=== PATIENT | female | born 1955 | race Caucasian/White ===

== ENCOUNTER → 2016-08-16 | Outpatient (CLI) | payer BC ==
[2016-08-16 11:59] LABS: ALT 33 U/L (9-52); AST 24 U/L (14-36); Alkaline Phosphatase 65 U/L (38-126); Anion Gap 11 mmol/L; Blood Urea Nitrogen 17 mg/dL (7-17); Carbon Dioxide 26 mmol/L (22-30); Chloride 105 mmol/L (98-107); Cholesterol 188 mg/dL (<200); Glucose 96 mg/dL (74-99); HDL Cholesterol 53 mg/dL (40-60); Non-African American GFR(MDRD) >60 (>60 ml/min/1.73 sqM); Potassium 3.9 mmol/L (3.5-5.1); Sodium 142 mmol/L (137-145); Total Bilirubin 0.7 mg/dL (0.2-1.3); Total Protein 7.1 g/dL (6.3-8.2); Triglycerides 185 mg/dL (<150)
[2016-08-16 12:38] LABS: Vitamin B12 486 pg/mL (239-931)
== END | disposition home or self-care (01) ==
LOC: LABWHC1 08:43
PROVIDERS: ATTEND Internal Medicine Endocrinology, Diabetes & Metabolism
DX: E03.9 Hypothyroidism, unspecified (principal); E11.65 Type 2 diabetes mellitus with hyperglycemia
CPT/HCPCS: 36415; 80053; 80061; 82043; 82607; 84443

== ENCOUNTER → 2016-09-13 | Outpatient (CLI) | payer BC ==
--- NOTE | 2016-09-14 13:20 | BD ---
EXAMINATION TYPE: MG DEXA axial skeleton. DATE OF EXAM: 09/13/2016 4:02 PM COMPARISON: NONE CLINICAL HISTORY: Z13.820 SPECIAL SCREENING FOR OSTEOPOROSIS Height: 62 Weight: 170 FRAX RISK QUESTIONS: Alcohol (3 or more units per day): NO Family History (Parent hip fracture): YES Glucocorticoids (More than 3mos): NO (Ex: prednisone, prednisolone, methylprednisolone, dexamethasone, and hydrocortisone). History of Fracture in Adulthood: NO Secondary Osteoporosis: NO 1. Type 1 Diabetes: NO 2. Hyperthyroidism: NO 3. Menopause before 45: NO 4. Malnutrition: NO 5. Chronic liver disease: NO Rheumatoid Arthritis: NO Current Tobacco Use: NO RISK FACTORS HISTORY OF: Family History of Osteoporosis: YES, HER MOTHER WITH BROKEN HIP Smoke tobacco: NO Drink Alcohol: RARELY Active: YES, EXERCISES DAILY Diet low in dairy products/other sources of calcium: NO Postmenopausal woman: YES AT 49 YRS OLD Adrenal Insufficiency: NO MEDICATIONS: Thyroid Medications: YES Which medication: GENERIC SYNTHROID How Lon YRS Additional Medications: BP MEDS, ORAL DIABETIC MEDS, CALCIUM AND VIT D, STATIN FOR CHOLESTEROL, HEART BURN MEDS Additional History: HYPERTENSION, DIABETIC, ACID REFLUX EXAM MEASUREMENTS: Bone mineral densitometry was performed using the [employer] System. Bone mineral density as measured about the Lumbar spine is: ----- L1-L4(G/cm2): 1.096 T Score Values are as follows: ----- L1 -0.4 ----- L2: -0.9 ----- L3: -0.5 ----- L4: -1.0 ----- L1-L4: -0.7 Bone mineral density THIS IS HER FIRST BONE DENSITY TEST AT [facility].... Bone mineral density about the R hip (g/cm2): 1.026 Bone mineral density about the L hip (g/cm2): 0.980 T Score values are as follows: -----R Neck: -0.7 -----L Neck: -0.9 -----R Total: 0.1 -----L Total: -0.2 Bone mineral density FIRST BONE DENSITY AT [facility].... FRAX %'S: 14.5% CHANCE OF A MAJOR OSTEOPOROTIC FX AND 0.4% CHANCE OF A HIP FX..... PROBABILITY OF FX IN 10 YRS TIME IMPRESSION: Normal (Values between +1 and -1 indicate normal bone mass). Consider repeating this study in 5 year s or sooner if there is some new clinical indication. FOR BOTH HIPS AND LUMBAR SPINE NOTE: T-SCORE=SD OF THE YOUNG ADULT MEAN.
== END ==
LOC: RADBDWWP 15:23
PROVIDERS: ATTEND Family Medicine
DX: Z13.820 Encounter for screening for osteoporosis (principal)
CPT/HCPCS: 77080

== ENCOUNTER → 2017-03-06 | Outpatient (CLI) | payer BC ==
--- NOTE | 2017-03-07 11:52 | MM ---
Reason for exam: screening (asymptomatic). Last mammogram was performed 1 year ago. History: Patient is postmenopausal. Benign excisional biopsy of the left breast, 1994. Physical Findings: A clinical breast exam by your physician is recommended on an annual basis and results should be correlated with mammographic findings. MG Screening Mammo w CAD Bilateral CC and MLO view(s) were taken. Prior study comparison: March 04, 2016, bilateral MG screening mammo w CAD. March 01, 2015, bilateral MG screening mammo w CAD. No significant changes when compared with prior studies. ASSESSMENT: Benign, BI-RAD 2 RECOMMENDATION: Routine screening mammogram of both breasts in 1 year.
== END | disposition home or self-care (01) ==
LOC: RADMAMWWP 09:09
PROVIDERS: ATTEND Family Medicine
DX: Z12.31 Encounter for screening mammogram for malignant neoplasm of breast (principal)

== ENCOUNTER → 2017-06-24 | Outpatient (CLI) | payer BC ==
[2017-06-24 07:34] LABS: ALT 29 U/L (9-52); AST 18 U/L (14-36); Cholesterol 167 mg/dL (<200); Creatine Kinase 50 U/L (30-135); HDL Cholesterol 49 mg/dL (40-60); LDL Cholesterol,Calculated 90 mg/dL (0-99); Triglycerides 139 mg/dL (<150)
== END | disposition home or self-care (01) ==
LOC: LABWHC1 06:55
PROVIDERS: ATTEND Internal Medicine Interventional Cardiology
DX: E11.9 Type 2 diabetes mellitus without complications (principal); E78.00 Pure hypercholesterolemia, unspecified; Z11.59 Encounter for screening for other viral diseases
CPT/HCPCS: 36415; 80061; 82550; 84450; 84460; 86803

== ENCOUNTER → 2017-11-11 | Outpatient (CLI) | payer BC ==
[2017-11-11 10:34] LABS: ALT 37 U/L (9-52); AST 21 U/L (14-36); Alkaline Phosphatase 74 U/L (38-126); Anion Gap 6 mmol/L; Blood Urea Nitrogen 16 mg/dL (7-17); Calcium 9.5 mg/dL (8.4-10.2); Carbon Dioxide 28 mmol/L (22-30); Chloride 108 mmol/L (98-107); Cholesterol 167 mg/dL (<200); Glucose 93 mg/dL (74-99); HDL Cholesterol 57 mg/dL (40-60); LDL Cholesterol,Calculated 93 mg/dL (0-99); Potassium 4.1 mmol/L (3.5-5.1); Sodium 142 mmol/L (137-145); Total Bilirubin 0.4 mg/dL (0.2-1.3); Total Protein 6.2 g/dL (6.3-8.2); Triglycerides 84 mg/dL (<150)
[2017-11-11 19:11] LABS: Hemoglobin A1C 5.5 % (4.0-6.0)
== END | disposition home or self-care (01) ==
LOC: LABWHC1 09:11
PROVIDERS: ATTEND Internal Medicine Endocrinology, Diabetes & Metabolism
DX: E11.65 Type 2 diabetes mellitus with hyperglycemia (principal); E03.8 Other specified hypothyroidism
CPT/HCPCS: 36415; 80053; 80061; 82043; 82570; 83036; 84443

== ENCOUNTER → 2017-12-30 | Outpatient (CLI) | payer BC | END | disposition home or self-care (01) | LOC: LABWHC1 13:57 | PROVIDERS: ATTEND Internal Medicine Endocrinology, Diabetes & Metabolism | DX: E03.8 Other specified hypothyroidism (principal) | CPT/HCPCS: 36415; 84443 ==

== ENCOUNTER → 2018-03-11 | Outpatient (CLI) | payer BC ==
--- NOTE | 2018-03-12 12:11 | MM ---
Reason for exam: screening (asymptomatic). Last mammogram was performed 1 year ago. History: Patient is postmenopausal. Benign excisional biopsy of the left breast, 1994. MG Screening Mammo w CAD Bilateral CC and MLO view(s) were taken. Prior study comparison: March 06, 2017, bilateral MG screening mammo w CAD. March 04, 2016, bilateral MG screening mammo w CAD. The breast tissue is heterogeneously dense. This may lower the sensitivity of mammography. Chronic nodularity in the right breast. No dignificant new finding since most recent study. ASSESSMENT: Benign, BI-RAD 2 RECOMMENDATION: Routine screening mammogram of both breasts in 1 year.
== END ==
LOC: RADMAMWWP 11:36
PROVIDERS: ATTEND Family Medicine
DX: Z12.31 Encounter for screening mammogram for malignant neoplasm of breast (principal)
CPT/HCPCS: 77067

== ENCOUNTER → 2018-05-13 | Outpatient (CLI) | payer BC ==
[2018-05-13 16:45] LABS: Albumin 4.3 g/dL (3.80-4.90); Albumin/Globulin Ratio 2.53 (1.20-2.10); Anion Gap 6.2 mmol/L (4.00-12.00); Calcium 9.4 mg/dL (8.7-10.3); Carbon Dioxide 28.8 mmol/L (21.6-31.8); Globulin 1.7 g/dL (1.6-3.3); LDL Cholesterol,Calculated 109.8 mg/dL (0.0-131.0); Potassium 4.5 mmol/L (3.5-5.5); Total Bilirubin 0.5 mg/dL (0.2-1.2); VLDL Calculation 12.2 mg/dL (5.00-40.00)
[2018-05-13 20:04] LABS: Hemoglobin A1C 5.5 % (4.0-6.0)
== END | disposition home or self-care (01) ==
LOC: LABWHC1 09:14
PROVIDERS: ATTEND Internal Medicine Endocrinology, Diabetes & Metabolism
DX: E11.65 Type 2 diabetes mellitus with hyperglycemia (principal); E03.8 Other specified hypothyroidism
CPT/HCPCS: 36415; 80053; 80061; 82043; 82570; 83036; 84443

== ENCOUNTER → 2018-11-09 | Outpatient (CLI) | payer MEDICARE ==
[2018-11-09 16:09] LABS: African American GFR (CKD) 90.3 (60.0-200.0); Albumin 4.3 g/dL (3.80-4.90); Albumin/Globulin Ratio 2.87 (1.60-3.17); Anion Gap 5.7 mmol/L (4.00-12.00); BUN/Creat Ratio 18.75 Ratio (12.00-20.00); Calcium 9.4 mg/dL (8.7-10.3); Carbon Dioxide 27.3 mmol/L (21.6-31.8); Globulin 1.5 g/dL (1.6-3.3); LDL Cholesterol,Calculated 107.2 mg/dL (0.0-131.0); Potassium 4.3 mmol/L (3.5-5.5); Total Bilirubin 0.6 mg/dL (0.2-1.2); Total Protein 5.8 g/dL (6.2-8.2); VLDL Calculation 13.8 mg/dL (5.00-40.00)
[2018-11-09 18:38] LABS: Hemoglobin A1C 5.7 % (4.0-6.0)
== END | disposition home or self-care (01) ==
LOC: LABWHC1 07:56
PROVIDERS: ATTEND Internal Medicine Endocrinology, Diabetes & Metabolism
DX: E11.9 Type 2 diabetes mellitus without complications (principal)
CPT/HCPCS: 36415; 80053; 80061; 82043; 82570; 83036; 84443

== ENCOUNTER → 2019-03-12 | Outpatient (CLI) | payer MEDICARE ==
--- NOTE | 2019-03-15 09:07 | MM ---
Reason for exam: screening (asymptomatic). Last mammogram was performed 1 year ago. History: Patient is postmenopausal. Benign excisional biopsy of the left breast, 1994. Physical Findings: A clinical breast exam by your physician is recommended on an annual basis and results should be correlated with mammographic findings. MG 3D Screening Mammo W/Cad Bilateral CC and MLO view(s) were taken. XCCL view(s) were taken of the left breast. Prior study comparison: March 11, 2018, bilateral MG screening mammo w CAD. March 06, 2017, bilateral MG screening mammo w CAD. There are scattered fibroglandular densities. Benign appearing bilateral calcifications. No suspicious abnormality. Post surgical change on the left. No significant changes when compared with prior studies. ASSESSMENT: Benign, BI-RAD 2 RECOMMENDATION: Routine screening mammogram of both breasts in 1 year.
== END ==
LOC: RADMAMWWP 11:03
PROVIDERS: ATTEND Family Medicine
DX: Z12.31 Encounter for screening mammogram for malignant neoplasm of breast (principal)
CPT/HCPCS: 77063; 77067

== ENCOUNTER → 2019-05-13 | Outpatient (CLI) | payer MEDICARE ==
[2019-05-13 17:29] LABS: African American GFR (CKD) 89.7 (60.0-200.0); Albumin 4.5 g/dL (3.80-4.90); Albumin/Globulin Ratio 2.81 (1.60-3.17); Anion Gap 8.9 mmol/L (4.00-12.00); BUN/Creat Ratio 22.5 Ratio (12.00-20.00); Calcium 9.5 mg/dL (8.7-10.3); Carbon Dioxide 26.1 mmol/L (21.6-31.8); Chol/HDL Ratio 3.11; Globulin 1.6 g/dL (1.6-3.3); LDL Cholesterol,Calculated 113.6 mg/dL (0.0-131.0); Non-African American GFR(CKD) 77.4 (60.0-200.0); Potassium 4.3 mmol/L (3.5-5.5); Total Bilirubin 0.7 mg/dL (0.2-1.2); Total Protein 6.1 g/dL (6.2-8.2); VLDL Calculation 17.4 mg/dL (5.00-40.00)
[2019-05-13 17:56] LABS: Urine Creatinine 93.3 mg/dL
[2019-05-13 18:37] LABS: Hemoglobin A1C 5.5 % (4.0-6.0)
== END ==
LOC: LABWHC1 08:39
PROVIDERS: ATTEND Internal Medicine Endocrinology, Diabetes & Metabolism
DX: E11.9 Type 2 diabetes mellitus without complications (principal)
CPT/HCPCS: 36415; 80053; 80061; 82043; 82570; 83036; 84443

== ENCOUNTER → 2019-11-11 | Outpatient (CLI) | payer MEDICARE ==
[2019-11-11 17:26] LABS: African American GFR (CKD) 89.7 (60.0-200.0); Albumin 4.3 g/dL (3.80-4.90); Albumin/Globulin Ratio 2.26 (1.60-3.17); Anion Gap 6.9 mmol/L (4.00-12.00); BUN/Creat Ratio 21.25 Ratio (12.00-20.00); Calcium 9.2 mg/dL (8.7-10.3); Carbon Dioxide 25.1 mmol/L (21.6-31.8); Chol/HDL Ratio 3.32; Globulin 1.9 g/dL (1.6-3.3); LDL Cholesterol,Calculated 111.2 mg/dL (0.0-131.0); Non-African American GFR(CKD) 77.4 (60.0-200.0); Potassium 4.3 mmol/L (3.5-5.5); Total Bilirubin 0.7 mg/dL (0.2-1.2); Total Protein 6.2 g/dL (6.2-8.2); VLDL Calculation 20.8 mg/dL (5.00-40.00)
[2019-11-11 17:36] LABS: Hemoglobin A1C 5.6 % (4.0-6.0)
[2019-11-11 17:44] LABS: Urine Creatinine 109.7 mg/dL
== END | disposition home or self-care (01) ==
LOC: LABWHC1 09:14
PROVIDERS: ATTEND Internal Medicine Endocrinology, Diabetes & Metabolism
DX: E11.9 Type 2 diabetes mellitus without complications (principal)
CPT/HCPCS: 36415; 80053; 80061; 82043; 82570; 83036; 84443

== ENCOUNTER → 2020-05-05 | Outpatient (CLI) | payer MEDICARE ==
[2020-05-05 16:33] LABS: African American GFR (CKD) 104.6 (60.0-200.0); Albumin 4.4 g/dL (3.80-4.90); Albumin/Globulin Ratio 2.44 (1.60-3.17); Anion Gap 5.9 mmol/L (4.00-12.00); Calcium 9.3 mg/dL (8.7-10.3); Carbon Dioxide 26.1 mmol/L (21.6-31.8); Chol/HDL Ratio 3.02; Globulin 1.8 g/dL (1.6-3.3); LDL Cholesterol,Calculated 103.6 mg/dL (0.0-131.0); Non-African American GFR(CKD) 90.3 (60.0-200.0); Potassium 4.1 mmol/L (3.5-5.5); Total Bilirubin 0.7 mg/dL (0.3-1.2); Total Protein 6.2 g/dL (6.2-8.2); VLDL Calculation 19.4 mg/dL (5.00-40.00)
[2020-05-05 19:39] LABS: Urine Creatinine 54.5 mg/dL
== END | disposition home or self-care (01) ==
LOC: LABWHC1 08:06
PROVIDERS: ATTEND Internal Medicine Endocrinology, Diabetes & Metabolism
DX: E03.8 Other specified hypothyroidism (principal); E11.9 Type 2 diabetes mellitus without complications
CPT/HCPCS: 36415; 80053; 80061; 82043; 82570; 83036; 84443

== ENCOUNTER → 2020-05-08 | Outpatient (CLI) | payer MEDICARE ==
--- NOTE | 2020-05-10 09:46 | MM ---
Reason for exam: screening (asymptomatic). Last mammogram was performed 1 year and 2 months ago. History: Patient is postmenopausal. Benign excisional biopsy of the left breast, 1994. Took hormonal contraceptives for 10 years. Physical Findings: A clinical breast exam by your physician is recommended on an annual basis and results should be correlated with mammographic findings. MG Screening Mammo w CAD Bilateral CC and MLO view(s) were taken. Prior study comparison: March 12, 2019, bilateral MG 3d screening mammo w/cad. March 11, 2018, bilateral MG screening mammo w CAD. There are scattered fibroglandular densities. There is chronic nodularity in the right breast. Benign oil cyst calcifications bilaterally. No significant changes when compared with prior studies. ASSESSMENT: Benign, BI-RAD 2 RECOMMENDATION: Routine screening mammogram of both breasts in 1 year.
== END | disposition home or self-care (01) ==
LOC: RADMAMWWP 16:02
PROVIDERS: ATTEND Family Medicine
DX: Z12.31 Encounter for screening mammogram for malignant neoplasm of breast (principal)
CPT/HCPCS: 77067

== ENCOUNTER → 2020-11-02 | Outpatient (CLI) | payer MEDICARE ==
[2020-11-02 13:58] LABS: Albumin 4.4 g/dL (3.80-4.90); Albumin/Globulin Ratio 2.2 (1.60-3.17); Anion Gap 6.7 mmol/L (4.00-12.00); Carbon Dioxide 25.3 mmol/L (21.6-31.8); Chol/HDL Ratio 3.23; LDL Cholesterol,Calculated 103.4 mg/dL (0.0-131.0); Non-African American GFR(CKD) 76.8 (60.0-200.0); Potassium 3.9 mmol/L (3.5-5.5); Total Bilirubin 0.7 mg/dL (0.2-1.2); Total Protein 6.4 g/dL (6.2-8.2); VLDL Calculation 21.6 mg/dL (5.00-40.00)
[2020-11-02 15:04] LABS: Hemoglobin A1C 5.6 % (4.0-6.0)
== END | disposition home or self-care (01) ==
LOC: LABWHC1 07:09
PROVIDERS: ATTEND Internal Medicine Endocrinology, Diabetes & Metabolism
DX: E11.9 Type 2 diabetes mellitus without complications (principal)
CPT/HCPCS: 36415; 80053; 80061; 82043; 82570; 83036; 84443

== ENCOUNTER → 2021-05-02 | Outpatient (CLI) | payer MEDICARE ==
--- NOTE | 2021-05-02 19:05 | BD ---
EXAMINATION TYPE: Axial Bone Density DATE OF EXAM: 05/02/2021 COMPARISON: 2017 CLINICAL HISTORY: Postmenopausal screening Height: 5 FT 2 3/4 IN Weight: 149 FRAX RISK QUESTIONS: Alcohol (3 or more units per day): NO Family History (Parent hip fracture): YES Glucocorticoids (More than 3mos): NO (Ex: prednisone, prednisolone, methylprednisolone, dexamethasone, and hydrocortisone). History of Fracture in Adulthood: NO Secondary Osteoporosis: 1. Type 1 Diabetes: NO 2. Hyperthyroidism: NO 3. Menopause before 45: NO 4. Malnutrition: NO 5. Chronic liver disease: NO Rheumatoid Arthritis: NO Current Tobacco Use: NO RISK FACTORS HISTORY OF: Surgery to Spine/Hip(right/left)/Wrist (right/left): NO Family History of Osteoporosis: YES Active: YES Diet low in dairy products/other sources of calcium: NO Postmenopausal woman: YES Take estrogen and/or progesterone medications: NO Lost more than 2 inches in height since high school: NO Frequent falls: NO Poor Health: GOOD Hyperparathyroidism: NO Adrenal Insufficiency: NO MEDICATIONS: Thyroid Medications: YES Which medication: LEVOTHYROXINE How Long: APPROX 20 YEARS Additional Medications: LEVOTHYROXINE, SIMVASTATIN, LISINOPRIL, METFORMIN Additional History: EXAM MEASUREMENTS: Bone mineral densitometry was performed using the [employer] System. Bone mineral density as measured about the Lumbar spine is: ----- L1-L4(G/cm2): 1.018 T Score Values are as follows: ----- L2: -1.5 ----- L3: -0.7 ----- L4: -1.2 ----- L1-L4: -1.3 Bone mineral density has: DECREASED -3.4 % since study of: 2017 Bone mineral density about the R hip (g/cm2): 0.862 Bone mineral density about the L hip (g/cm2): 0.807 T Score values are as follows: -----R Neck: -1.3 -----L Neck: -1.7 -----R Total: -0.6 -----L Total: -1.0 Bone mineral density has: DECREASED -9.5 % since study of: 2017 IMPRESSION: Osteopenia (T Score between -2.5 and -1). There is slightly increased risk of fracture and the patient may be considered for treatment. Re-Screen 2-5 years. NOTE: T-SCORE=SD OF THE YOUNG ADULT MEAN.
== END | disposition home or self-care (01) ==
LOC: RADBDWWP 07:00
PROVIDERS: ATTEND Family Medicine
DX: M85.89 Other specified disorders of bone density and structure, multiple sites (principal); Z78.0 Asymptomatic menopausal state
CPT/HCPCS: 77080

== ENCOUNTER → 2021-06-07 | Outpatient (CLI) | payer MEDICARE ==
--- NOTE | 2021-06-08 14:02 | MM ---
Reason for exam: screening (asymptomatic). Last mammogram was performed 1 year and 1 month ago. History: Patient is postmenopausal. Benign excisional biopsy of the left breast, 1994. Took hormonal contraceptives for 10 years. Physical Findings: A clinical breast exam by your physician is recommended on an annual basis and results should be correlated with mammographic findings. MG Screening Mammo w CAD Bilateral CC and MLO view(s) were taken. Prior study comparison: May 08, 2020, bilateral MG screening mammo w CAD. March 12, 2019, bilateral MG 3d screening mammo w/cad. The breast tissue is heterogeneously dense. This may lower the sensitivity of mammography. Stable benign calcifications. There is no discrete abnormality. No significant changes when compared with prior studies. ASSESSMENT: Benign, BI-RAD 2 RECOMMENDATION: Routine screening mammogram of both breasts in 1 year.
== END | disposition home or self-care (01) ==
LOC: RADMAMWWP 10:59
PROVIDERS: ATTEND Family Medicine
DX: Z12.31 Encounter for screening mammogram for malignant neoplasm of breast (principal); Z78.0 Asymptomatic menopausal state
CPT/HCPCS: 77067

== ENCOUNTER → 2021-11-01 | Outpatient (CLI) | payer MEDICARE ==
[2021-11-01 11:40] LABS: ALT 53 U/L (8-44); AST 27 U/L (13-35); African American GFR (CKD) 103.7 (60.0-200.0); Albumin 3.5 g/dL (3.8-4.9); Albumin/Globulin Ratio 1.34 (1.60-3.17); Alkaline Phosphatase 120 U/L (41-126); BUN/Creat Ratio 16.98 Ratio (12.00-20.00); Blood Urea Nitrogen 11.9 mg/dL (9.0-27.0); Calcium 8.9 mg/dL (8.7-10.3); Carbon Dioxide 22.1 mmol/L (20.0-27.5); Chloride 100 mmol/L (96-109); Chol/HDL Ratio 3.54 Ratio; Globulin 2.6 g/dL (1.6-3.3); Glucose 119 mg/dL (70-110); LDL Cholesterol,Calculated 80.8 mg/dL (0.0-131.0); Non-African American GFR(CKD) 89.5 (60.0-200.0); Potassium 4.6 mmol/L (3.5-5.5); Sodium 137 mmol/L (135-145); Total Protein 6.1 g/dL (6.2-8.2); VLDL Calculation 12.48 mg/dL (5.00-40.00)
== END | disposition home or self-care (01) ==
LOC: LABWHC1 07:04
PROVIDERS: ATTEND Internal Medicine Endocrinology, Diabetes & Metabolism
DX: E11.9 Type 2 diabetes mellitus without complications (principal)
CPT/HCPCS: 36415; 80053; 80061; 82043; 82570; 83036; 84443

== ENCOUNTER → 2021-11-19 | Outpatient (CLI) | payer MEDICARE ==
[2021-11-19 10:51] LABS: ALT 9 U/L (8-44); AST 16 U/L (13-35); African American GFR (CKD) 109.3 (60.0-200.0); Albumin 3.4 g/dL (3.8-4.9); Albumin/Globulin Ratio 1.03 (1.60-3.17); Alkaline Phosphatase 72 U/L (41-126); BUN/Creat Ratio 13.17 Ratio (12.00-20.00); Blood Urea Nitrogen 7.9 mg/dL (9.0-27.0); Calcium 9.2 mg/dL (8.7-10.3); Carbon Dioxide 24.7 mmol/L (20.0-27.5); Chloride 103 mmol/L (96-109); Globulin 3.3 g/dL (1.6-3.3); Glucose 104 mg/dL (70-110); Non-African American GFR(CKD) 94.3 (60.0-200.0); Sodium 139 mmol/L (135-145); Total Bilirubin <0.15 mg/dL (0.30-1.20); Total Protein 6.7 g/dL (6.2-8.2)
== END | disposition home or self-care (01) ==
LOC: LABWHC1 07:29
PROVIDERS: ATTEND Internal Medicine Endocrinology, Diabetes & Metabolism
DX: E11.9 Type 2 diabetes mellitus without complications (principal)
CPT/HCPCS: 36415; 80053

== ENCOUNTER 2022-05-08 14:22 | Observation (INO) | payer MEDICARE ==
--- NOTE | 2022-05-08 14:57 | ED ---
GI Bleed HPI - General Chief complaint: GI Bleed Stated complaint: internal bleeding/covid + Time Seen by Provider: 05/08/22 14:51 Source: patient Mode of arrival: ambulatory - History of Present Illness Initial comments: This is a well-appearing 66-year-old female presents ambulatory with complaints of being sent by primary care doctor for bright red bowel movements for the past few days. Patient states she's having felt 100 day. She did test positive for coronavirus last Friday and at that time developed diarrhea since when her symptoms of rectal bleeding started. She does have a history of aneurysm, hypertension, diabetes, hypercholesterolemia. No alcohol or drug use. -: days(s) (3) - Related Data Home Medications Medication Instructions Recorded Confirmed Aspirin EC [Ecotrin Low Dose] 81 mg PO Q3D 05/08/22 05/08/22 Levothyroxine Sodium [Synthroid] 100 mcg PO DAILY 05/08/22 05/08/22 Metoprolol Succinate (ER) [Toprol 25 mg PO HS 05/08/22 05/08/22 XL] Multivitamins, Thera [Multivitamin 1 tab PO HS 05/08/22 05/08/22 (formulary)] Simvastatin [Zocor] 20 mg PO Q48H 05/08/22 05/08/22 lisinopriL [Zestril] 5 mg PO HS 05/08/22 05/08/22 metFORMIN HCL ER [Glucophage XR] 500 mg PO HS 05/08/22 05/08/22 Previous Rx's Medication Instructions Recorded Pantoprazole [Protonix] 40 mg PO DAILY #14 tab 05/09/22 Allergies Allergy/AdvReac Type Severity Reaction Status Date / Time No Known Allergies Allergy Verified 05/08/22 19:54 Review of Systems ROS Statement: Those systems with pertinent positive or pertinent negative responses have been documented in the HPI. ROS Other: All systems not noted in ROS Statement are negative. Past Medical History Past Medical History: Diabetes Mellitus, Hyperlipidemia, Hypertension, Thyroid Disorder Additional Past Medical History / Comment(s): aortic aneurysm History of Any Multi-Drug Resistant Organisms: None Reported Past Surgical History: Bladder Surgery, Breast Surgery, Hysterectomy Past Psychological History: No Psychological Hx Reported Smoking Status: Never smoker Past Alcohol Use History: None Reported Past Drug Use History: None Reported Course Vital Signs 05/08/22 05/08/22 14:50 19:00 Temperature 98.0 F Pulse Rate 90 68 Respiratory 16 16 Rate Blood Pressure 134/85 96/68 O2 Sat by Pulse 96 97 Oximetry Medical Decision Making - Lab Data Result diagrams: 05/09/22 05:33 05/09/22 05:33 Lab Results 05/08/22 05/08/22 05/08/22 Range/Units 16:05 16:05 16:05 WBC 6.5 (3.8-10.6) k/uL RBC 4.44 (3.80-5.40) m/uL Hgb 13.3 (11.4-16.0) gm/dL Hct 38.9 (34.0-46.0) % MCV 87.6 (80.0-100.0) fL MCH 30.0 (25.0-35.0) pg MCHC 34.2 (31.0-37.0) g/dL RDW 13.0 (11.5-15.5) % Plt Count 252 (150-450) k/uL MPV 8.2 Neutrophils % 59 % Lymphocytes % 28 % Monocytes % 8 % Eosinophils % 2 % Basophils % 1 % Neutrophils # 3.8 (1.3-7.7) k/uL Lymphocytes # 1.8 (1.0-4.8) k/uL Monocytes # 0.5 (0-1.0) k/uL Eosinophils # 0.1 (0-0.7) k/uL Basophils # 0.0 (0-0.2) k/uL APTT 23.4 (22.0-30.0) sec Sodium 141 (137-145) mmol/L Potassium 4.5 (3.5-5.1) mmol/L Chloride 107 (98-107) mmol/L Carbon Dioxide 28 (22-30) mmol/L Anion Gap 6 mmol/L BUN 14 (7-17) mg/dL Creatinine 0.70 (0.52-1.04) mg/dL Est GFR (CKD-EPI)AfAm >90 (>60 ml/min/1.73 sqM) Est GFR (CKD-EPI)NonAf 89 (>60 ml/min/1.73 sqM) Glucose 106 H (74-99) mg/dL Calcium 9.0 (8.4-10.2) mg/dL Magnesium 2.0 (1.6-2.3) mg/dL Total Bilirubin 0.2 (0.2-1.3) mg/dL AST 20 (14-36) U/L ALT 17 (4-34) U/L Alkaline Phosphatase 63 (38-126) U/L Total Protein 6.2 L (6.3-8.2) g/dL Albumin 3.8 (3.5-5.0) g/dL Stool Occult Blood (Negative) 05/08/22 Range/Units 18:08 WBC (3.8-10.6) k/uL RBC (3.80-5.40) m/uL Hgb (11.4-16.0) gm/dL Hct (34.0-46.0) % MCV (80.0-100.0) fL MCH (25.0-35.0) pg MCHC (31.0-37.0) g/dL RDW (11.5-15.5) % Plt Count (150-450) k/uL MPV Neutrophils % % Lymphocytes % % Monocytes % % Eosinophils % % Basophils % % Neutrophils # (1.3-7.7) k/uL Lymphocytes # (1.0-4.8) k/uL Monocytes # (0-1.0) k/uL Eosinophils # (0-0.7) k/uL Basophils # (0-0.2) k/uL APTT (22.0-30.0) sec Sodium (137-145) mmol/L Potassium (3.5-5.1) mmol/L Chloride (98-107) mmol/L Carbon Dioxide (22-30) mmol/L Anion Gap mmol/L BUN (7-17) mg/dL Creatinine (0.52-1.04) mg/dL Est GFR (CKD-EPI)AfAm (>60 ml/min/1.73 sqM) Est GFR (CKD-EPI)NonAf (>60 ml/min/1.73 sqM) Glucose (74-99) mg/dL Calcium (8.4-10.2) mg/dL Magnesium (1.6-2.3) mg/dL Total Bilirubin (0.2-1.3) mg/dL AST (14-36) U/L ALT (4-34) U/L Alkaline Phosphatase (38-126) U/L Total Protein (6.3-8.2) g/dL Albumin (3.5-5.0) g/dL Stool Occult Blood Positive H (Negative) Disposition Disposition: ADMITTED IP TO THIS HOSP Condition: Stable
[2022-05-08 16:15] LABS: Basophils % (A) 1 %; Eosinophils # (A) 0.1 k/uL (0-0.7); Eosinophils % (A) 2 %; HCT 38.9 % (34.0-46.0); HGB 13.3 gm/dL (11.4-16.0); Lymphocytes # (A) 1.8 k/uL (1.0-4.8); Lymphocytes % (A) 28 %; MCHC 34.2 g/dL (31.0-37.0); MCV 87.6 fL (80.0-100.0); Mean Platelet Volume 8.2; Monocytes # (A) 0.5 k/uL (0-1.0); Monocytes % (A) 8 %; Neutrophils # (A) 3.8 k/uL (1.3-7.7); Neutrophils % (A) 59 %; Platelet Count 252 k/uL (150-450); RBC 4.44 m/uL (3.80-5.40); WBC 6.5 k/uL (3.8-10.6)
[2022-05-08 16:26] LABS: ALT 17 U/L (4-34); AST 20 U/L (14-36); African American GFR (CKD) >90 (>60 ml/min/1.73 sqM); Albumin 3.8 g/dL (3.5-5.0); Alkaline Phosphatase 63 U/L (38-126); Anion Gap 6 mmol/L; Blood Urea Nitrogen 14 mg/dL (7-17); Carbon Dioxide 28 mmol/L (22-30); Chloride 107 mmol/L (98-107); Glucose 106 mg/dL (74-99); Non-African American GFR(CKD) 89 (>60 ml/min/1.73 sqM); Potassium 4.5 mmol/L (3.5-5.1); Sodium 141 mmol/L (137-145); Total Bilirubin 0.2 mg/dL (0.2-1.3); Total Protein 6.2 g/dL (6.3-8.2)
[2022-05-08] MEDS ORDERED: PEG 3350 (236 GM/BTL) + LYTES 4,000 ML BOTTLE PO ONE (18:44)
[2022-05-08] MEDS ORDERED: ONDANSETRON 4 MG/2 ML VIAL IVP PRN (18:45)
[2022-05-08] MEDS ORDERED: NALOXONE 0.4 MG/ML 1 ML VIAL IV PRN (18:45)
[2022-05-08] MEDS ORDERED: ACETAMINOPHEN TAB 325 MG TAB PO PRN (18:45)
[2022-05-08] MEDS ORDERED: MAG HYDROX/AL HYDROX/SIMETH 30 ML CUP PO PRN (18:45)
[2022-05-08] MEDS: SODIUM CHLORIDE 0.9% 1,000 ML IV SCH (19:42)
[2022-05-08] MEDS ORDERED: lisinopriL 5 MG TAB PO SCH (21:00)
[2022-05-08] MEDS ORDERED: METOPROLOL SUCCINATE (ER) 25 MG TAB.ER.24H PO SCH (21:00)
[2022-05-08 21:12] LABS: Glucose,Whole Blood 87 mg/dL (70-110)
[2022-05-08] MEDS: FAMOTIDINE 20 MG TAB PO SCH (21:25)
[2022-05-09 00:43] LABS: HCT 40.8 % (34.0-46.0); HGB 13.4 gm/dL (11.4-16.0); MCH 28.8 pg (25.0-35.0); MCHC 32.9 g/dL (31.0-37.0); MCV 87.5 fL (80.0-100.0); Platelet Count 306 k/uL (150-450); RBC 4.67 m/uL (3.80-5.40); RDW 12.6 % (11.5-15.5); WBC 6.5 k/uL (3.8-10.6)
[2022-05-09] MEDS: SODIUM CHLORIDE 0.9% 1,000 ML IV SCH (04:26)
[2022-05-09 05:49] LABS: Basophils % (A) 0 %; Eosinophils # (A) 0.1 k/uL (0-0.7); Eosinophils % (A) 2 %; HCT 35.6 % (34.0-46.0); HGB 11.9 gm/dL (11.4-16.0); Lymphocytes # (A) 1.8 k/uL (1.0-4.8); Lymphocytes % (A) 34 %; MCH 29.2 pg (25.0-35.0); MCHC 33.5 g/dL (31.0-37.0); MCV 87.1 fL (80.0-100.0); Mean Platelet Volume 7.9; Monocytes # (A) 0.4 k/uL (0-1.0); Monocytes % (A) 8 %; Neutrophils # (A) 2.8 k/uL (1.3-7.7); Neutrophils % (A) 53 %; Platelet Count 250 k/uL (150-450); RBC 4.09 m/uL (3.80-5.40); RDW 12.7 % (11.5-15.5); WBC 5.2 k/uL (3.8-10.6)
[2022-05-09 06:02] LABS: African American GFR (CKD) >90 (>60 ml/min/1.73 sqM); Anion Gap 2 mmol/L; Blood Urea Nitrogen 12 mg/dL (7-17); Carbon Dioxide 27 mmol/L (22-30); Chloride 111 mmol/L (98-107); Glucose 93 mg/dL (74-99); Non-African American GFR(CKD) >90 (>60 ml/min/1.73 sqM); Potassium 3.8 mmol/L (3.5-5.1); Sodium 140 mmol/L (137-145)
[2022-05-09 06:14] LABS: Glucose,Whole Blood 106 mg/dL (70-110)
[2022-05-09 08:02] VITALS: RESP 18
[2022-05-09] MEDS: FAMOTIDINE 20 MG TAB PO SCH (09:32)
[2022-05-09] MEDS ORDERED: PROPOFOL 10 MG/ML 20 ML VIAL IV ONE (11:27)
[2022-05-09] MEDS ORDERED: IV FLUID CONTINUATION 1,000 ML IV ONE (11:27)
[2022-05-09] MEDS ORDERED: LIDOCAINE 2% INJ 20 MG/ML (2 ML VIAL) ONE (11:27)
--- NOTE | 2022-05-09 11:47 | P.OP ---
Date of Procedure: 05/09/22 Preoperative Diagnosis: gi Bleed Postoperative Diagnosis: Antral gastritis Moderate size hiatal hernia Mild esophagitis diverticulosis Procedure(s) Performed: EGD Colonoscopy Anesthesia: MAC Surgeon: Kevin Ordonez Condition: stable Disposition: floor Description of Procedure: Patient's placed on the endoscopy table in the lateral position. She received IV sedation. The gastroscope placed oropharynx passed in the esophagus and stomach. Scope was then placed through the pylorus. The first and second portion of the duodenum appeared normal. Scope was then brought back the antrum this. Minimally inflamed. Biopsies performed. Scope was then retroflexed and the remainder the stomach appeared normal. There was a moderate size hiatal hernia. The GE junction was at 38 cm. The distal esophagus was minimal inflamed. A biopsies performed. The proximal esophagus appeared normal. Scope was then withdrawn for patient. Next digital rectal exam was performed. This revealed no abnormalities. The flexible colonoscope was then placed patient anus and passed throughout the entire colon. The ileocecal valve was visualized. The cecum, ascending and transverse colon appeared normal. In the descending and sigmoid colon there is moderate diverticular changes. Scope was then brought back the rectum and this appeared normal. Scope withdrawn for patient. There is no evidence of any active GI bleed. Patient may have had microscopic bleeding from her gastritis.
--- NOTE | 2022-05-09 12:57 | P.GSCN ---
History of Present Illness Consult date: 05/09/22 History of present illness: CHIEF COMPLAINT: GI Bleed HISTORY OF PRESENT ILLNESS: This is a 66-year-old female who presented to hospital with complaints of bright red blood per rectum. She reports that she's been having bleeding since Friday. She was diagnosed with Covid on Friday and had been dealing with diarrhea and eventually started to have blood with blood clots in her stools. She denies any abdominal pain. She denies any nausea or vomiting. She denies any history of GI bleed. Her last colonoscopy was 2017 per patient it was negative. She's never had EGD before. She denies being on blood thinners. Hemoglobin on admission was 13 and did drop down to 11.9. PAST MEDICAL HISTORY: See below PAST SURGICAL HISTORY: See below MEDICATIONS: See below ALLERGIES: See below SOCIAL HISTORY: No illicit drug use. REVIEW OF SYSTEMS: CONSTITUTIONAL: Denies fever or chills. HEENT: Denies blurred vision, vision changes, or eye pain. Denies hemoptysis CARDIOVASCULAR: Denies chest pain or pressure. RESPIRATORY: No shortness of breath. GASTROINTESTINAL: See HPI for pertinent findings HEMATOLOGIC: Denies bleeding disorders. GENITOURINARY: Denies any blood in urine or increased urinary frequency. SKIN: Denies pruitis. Denies rash. PHYSICAL EXAM: VITAL SIGNS: Reviewed GENERAL: Well-developed in no acute distress. HEENT: No sclera icterus. Extraocular movements grossly intact. Moist buccal mucosa. Head is atraumatic, normocephalic. No nasal drainage. ABDOMEN: Soft. Nondistended. Nontender NEUROLOGIC: Alert and oriented. Cranial nerves II through XII grossly intact. LABORATORY DATA: WBC is 5.2 Hgb 11.9 platelets are 250 Sodium 140 potassium is 3.8 creatinine 0.54 Covid positive IMAGING: ASSESSMENT: 1. Acute GI bleed with bright red blood per stools 2. History of COVID-19 with diarrhea PLAN: -Patient scheduled for EGD and colonoscopy today with Dr. merrill -Patient completed GoLYTELY bowel prep yesterday -Continue IV Protonix-continue IV fluids -Continue to monitor hemoglobin -Continue monitoring for any signs or symptoms of bleeding Physician Scrap Iron Cutter note has been reviewed by physician. Signing provider agrees with the documented findings, assessment, and plan of care. Past Medical History Past Medical History: Diabetes Mellitus, Hyperlipidemia, Hypertension, Thyroid Disorder Additional Past Medical History / Comment(s): aortic aneurysm History of Any Multi-Drug Resistant Organisms: None Reported Past Surgical History: Bladder Surgery, Breast Surgery, Hysterectomy Past Psychological History: No Psychological Hx Reported Smoking Status: Never smoker Past Alcohol Use History: None Reported Past Drug Use History: None Reported Medications and Allergies Home Medications Medication Instructions Recorded Confirmed Type Aspirin EC [Ecotrin Low Dose] 81 mg PO Q3D 05/08/22 05/08/22 History Levothyroxine Sodium [Synthroid] 100 mcg PO DAILY 05/08/22 05/08/22 History Metoprolol Succinate (ER) [Toprol 25 mg PO HS 05/08/22 05/08/22 History Xl] Multivitamins, Thera [Multivitamin 1 tab PO HS 05/08/22 05/08/22 History (formulary)] Simvastatin [Zocor] 20 mg PO Q48H 05/08/22 05/08/22 History lisinopriL [Zestril] 5 mg PO HS 05/08/22 05/08/22 History metFORMIN HCL ER [Glucophage XR] 500 mg PO HS 05/08/22 05/08/22 History Allergies Allergy/AdvReac Type Severity Reaction Status Date / Time No Known Allergies Allergy Verified 05/08/22 19:54 Surgical - Exam Vital Signs Temp Pulse Resp BP Pulse Ox 98.0 F 90 16 134/85 96 05/08/22 14:50 05/08/22 14:50 05/08/22 14:50 05/08/22 14:50 05/08/22 14:50 Results - Labs 05/09/22 05:33 05/09/22 05:33 Abnormal Lab Results - Last 24 Hours (Table) 05/08/22 05/08/22 05/08/22 Range/Units 16:05 18:08 19:20 Chloride (98-107) mmol/L Glucose 106 H (74-99) mg/dL Calcium (8.4-10.2) mg/dL Total Protein 6.2 L (6.3-8.2) g/dL Stool Occult Blood Positive H (Negative) Coronavirus (PCR) Detected A (Not Detectd) 05/09/22 Range/Units 05:33 Chloride 111 H (98-107) mmol/L Glucose (74-99) mg/dL Calcium 8.0 L (8.4-10.2) mg/dL Total Protein (6.3-8.2) g/dL Stool Occult Blood (Negative) Coronavirus (PCR) (Not Detectd) Diabetes panel 05/08/22 05/09/22 Range/Units 16:05 05:33 Sodium 141 140 (137-145) mmol/L Potassium 4.5 3.8 (3.5-5.1) mmol/L Chloride 107 111 H (98-107) mmol/L Carbon Dioxide 28 27 (22-30) mmol/L BUN 14 12 (7-17) mg/dL Creatinine 0.70 0.54 (0.52-1.04) mg/dL Glucose 106 H 93 (74-99) mg/dL Calcium 9.0 8.0 L (8.4-10.2) mg/dL AST 20 (14-36) U/L ALT 17 (4-34) U/L Alkaline Phosphatase 63 (38-126) U/L Total Protein 6.2 L (6.3-8.2) g/dL Albumin 3.8 (3.5-5.0) g/dL Calcium panel 05/08/22 05/09/22 Range/Units 16:05 05:33 Calcium 9.0 8.0 L (8.4-10.2) mg/dL Albumin 3.8 (3.5-5.0) g/dL Pituitary panel 05/08/22 05/09/22 Range/Units 16:05 05:33 Sodium 141 140 (137-145) mmol/L Potassium 4.5 3.8 (3.5-5.1) mmol/L Chloride 107 111 H (98-107) mmol/L Carbon Dioxide 28 27 (22-30) mmol/L BUN 14 12 (7-17) mg/dL Creatinine 0.70 0.54 (0.52-1.04) mg/dL Glucose 106 H 93 (74-99) mg/dL Calcium 9.0 8.0 L (8.4-10.2) mg/dL Adrenal panel 05/08/22 05/09/22 Range/Units 16:05 05:33 Sodium 141 140 (137-145) mmol/L Potassium 4.5 3.8 (3.5-5.1) mmol/L Chloride 107 111 H (98-107) mmol/L Carbon Dioxide 28 27 (22-30) mmol/L BUN 14 12 (7-17) mg/dL Creatinine 0.70 0.54 (0.52-1.04) mg/dL Glucose 106 H 93 (74-99) mg/dL Calcium 9.0 8.0 L (8.4-10.2) mg/dL Total Bilirubin 0.2 (0.2-1.3) mg/dL AST 20 (14-36) U/L ALT 17 (4-34) U/L Alkaline Phosphatase 63 (38-126) U/L Total Protein 6.2 L (6.3-8.2) g/dL Albumin 3.8 (3.5-5.0) g/dL
[2022-05-09 13:04] LABS: Glucose,Whole Blood 82 mg/dL (70-110)
--- NOTE | 2022-05-09 13:30 | P.HPIM ---
History of Present Illness H&P Date: 05/09/22 This is a 66-year-old female who follows with Dr. Marina Monson, medical history significant for hypertension, hyperlipidemia, diabetes mellitus, thyroid disorder, aneurysm. Patient presents to the hospital with concern for bright red bowel movements over the last few days. Reports passing some clots as well. Patient did have a positive Covid test last Friday and then developed diarrhea and rectal bleeding. She continues to test positive for Covid this admission. Hemoglobin on admission 13.4, 11.9 today. Sodium stable at 140, potassium 3.8, chloride 111, BUN 12, creatinine 0.54. She is admitted to the hospital for a GI bleed possible lower and Gen. surgery has been consulted for further evaluation, patient has been nothing by mouth after midnight and is scheduled to undergo EGD colonoscopy today with Dr. Ordonez. Possible discharge home later today pending endoscopy. REVIEW OF SYSTEMS: CONSTITUTIONAL: No fever, no malaise, no fatigue. HEENT: No recent visual problems or hearing problems. Denied any sore throat. CARDIOVASCULAR: No chest pain, orthopnea, PND, no palpitations, no syncope. PULMONARY: No shortness of breath, no cough, no hemoptysis. GASTROINTESTINAL: No diarrhea, no nausea, no vomiting, no abdominal pain. Reports passing clots rectally and bright red stool. NEUROLOGICAL: No headaches, no weakness, no numbness. HEMATOLOGICAL: Denies any bleeding or petechiae. GENITOURINARY: Denies any burning micturition, frequency, or urgency. MUSCULOSKELETAL/RHEUMATOLOGICAL: Denies any joint pain, swelling, or any muscle pain. ENDOCRINE: Denies any polyuria or polydipsia. The rest of the 14-point review of systems is negative. PHYSICAL EXAMINATION: GENERAL: The patient is alert and oriented x3, not in any acute distress. Well developed, well nourished. HEENT: Pupils are round and equally reacting to light. EOMI. No scleral icterus. No conjunctival pallor. Normocephalic, atraumatic. No pharyngeal erythema. No thyromegaly. CARDIOVASCULAR: S1 and S2 present. No murmurs, rubs, or gallops. PULMONARY: Chest is clear to auscultation, no wheezing or crackles. ABDOMEN: Soft, nontender, nondistended, normoactive bowel sounds. No palpable organomegaly. MUSCULOSKELETAL: No joint swelling or deformity. EXTREMITIES: No cyanosis, clubbing, or pedal edema. NEUROLOGICAL: Gross neurological examination did not reveal any focal deficits. SKIN: No rashes. Assessment and plan Assessment Rectal bleeding with concern for acute lower GI bleed Acute Covid infection no evidence for pneumonia patient is currently on room air History of hypertension currently low/normal blood pressure History hyperlipidemia History of diabetes mellitus type 2, controlled History of thyroid disorder on levothyroxine History aneurysm GI prophylaxis DVT prophylaxis held at this time Full Code Plan Continue hydration with normal saline Hold home blood pressure medications General surgery consultation EGD/Colonoscopy today Possible DC home later today if cleared by general surgery The impression and plan of care has been dictated by Nora Ward Nurse Practitioner as directed. Dr. Diandra MD I have performed a history and physical examination and medical decision making of this patient, discussed the same with the dictator, and agree with the dictators assessment and plan as written, documented as a scribe. Based on total visit time, I have performed more than 50% of this visit. Past Medical History Past Medical History: Diabetes Mellitus, Hyperlipidemia, Hypertension, Thyroid Disorder Additional Past Medical History / Comment(s): aortic aneurysm History of Any Multi-Drug Resistant Organisms: None Reported Past Surgical History: Bladder Surgery, Breast Surgery, Hysterectomy Past Psychological History: No Psychological Hx Reported Smoking Status: Never smoker Past Alcohol Use History: None Reported Past Drug Use History: None Reported Medications and Allergies Home Medications Medication Instructions Recorded Confirmed Type Aspirin EC [Ecotrin Low Dose] 81 mg PO Q3D 05/08/22 05/08/22 History Levothyroxine Sodium [Synthroid] 100 mcg PO DAILY 05/08/22 05/08/22 History Metoprolol Succinate (ER) [Toprol 25 mg PO HS 05/08/22 05/08/22 History Xl] Multivitamins, Thera [Multivitamin 1 tab PO HS 05/08/22 05/08/22 History (formulary)] Simvastatin [Zocor] 20 mg PO Q48H 05/08/22 05/08/22 History lisinopriL [Zestril] 5 mg PO HS 05/08/22 05/08/22 History metFORMIN HCL ER [Glucophage XR] 500 mg PO HS 05/08/22 05/08/22 History Allergies Allergy/AdvReac Type Severity Reaction Status Date / Time No Known Allergies Allergy Verified 05/08/22 19:54 Physical Exam Vitals: Vital Signs Temp Pulse Pulse Resp BP BP Pulse Ox 05/09/22 07:00 98 F 74 18 100/57 98 05/09/22 01:53 97.8 F 71 17 106/70 100 05/08/22 21:13 97.8 F 73 17 119/70 97 05/08/22 21:04 16 05/08/22 19:00 68 16 96/68 97 05/08/22 14:50 98.0 F 90 16 134/85 96 Intake and Output 05/08/22 05/09/22 05/09/22 22:59 06:59 14:59 Intake Total 1080 1000 Balance 1080 1000 Intake: Intake, IV Titration 1000 Amount Sodium Chloride 0.9% 1, 1000 000 ml @ 130 mls/hr IV . Q7H42M [facility] Rx#:[id number] Oral 1080 Other: Voiding Method Toilet Weight 66.678 kg Results CBC & Chem 7: 05/09/22 05:33 05/09/22 05:33 Labs: Abnormal Lab Results - Last 24 Hours (Table) 05/08/22 05/08/22 05/08/22 Range/Units 16:05 18:08 19:20 Chloride (98-107) mmol/L Glucose 106 H (74-99) mg/dL Calcium (8.4-10.2) mg/dL Total Protein 6.2 L (6.3-8.2) g/dL Stool Occult Blood Positive H (Negative) Coronavirus (PCR) Detected A (Not Detectd) 05/09/22 Range/Units 05:33 Chloride 111 H (98-107) mmol/L Glucose (74-99) mg/dL Calcium 8.0 L (8.4-10.2) mg/dL Total Protein (6.3-8.2) g/dL Stool Occult Blood (Negative) Coronavirus (PCR) (Not Detectd) Assessment and Plan Time with Patient: Less than 30
[2022-05-09 13:44] VITALS: BP 113/64; PULSE 83; TEMP 98
--- NOTE | 2022-05-09 16:53 | P.DS ---
Providers Date of admission: 05/08/22 18:45 Attending physician: Alicia Dallas Consults: 05/08/22 18:45 Consult Physician Routine Consulting Provider: Kevin Ordonez Consult Reason/Comments: GI bleeding Do you want consulting provider notified?: Yes Primary care physician: Marina Monson Hospital Course: Final Diagnosis Rectal bleeding possibly microscopic bleeding from gastritis. Endoscopy revealing no active bleed. Acute Covid infection no evidence for pneumonia patient is currently on room air History of hypertension currently low/normal blood pressure History hyperlipidemia History of diabetes mellitus type 2, controlled History of thyroid disorder on levothyroxine History aneurysm Full Code Discharge Disposition Patient is stable for discharge home she has been cleared by GI services. Pat ient underwent EGD/Colonoscopy today showing gastritis with no active bleeding noted. No further episodes of rectal bleeding this hospital stay. Patient will resume on aspirin 81 mg po daily and also will be discharged on 14 days of oral protonix. Recommend to follow up closely with primary care provider and repeat CBC in 2 to 3 days. Recommend supportive care for acute covid infection, patient remains on room air with no evidence for acute pneumonia infection. Hospital Course This is a 66 year old female who recently tested positive for coronavirus. She developed rectal bleeding x 2 days and had passed a few clots. She was concerned and came into the for further evaluation. Prior colonoscopy was done in [address] Ellis as a routine screening and was negative for acute findings. She had stable hemoglobin on admission 13.4 and had dropped to 11.9. She was evaluated by general surgery who performed EGD colonoscopy and findings show minimal gastritis with no evidence for active GI bleed. Possibly patient had microscopic bleeding from gastritis. She will be discharged on protonix and recommend to follow up with general surgery and primary care on discharge. Currently denying shortness of breath, no chest pain, no nausea, vomiting, or diarrhea. No further rectal bleeding. Alert x 3, focal neurological exam negative. Lungs are clear she is on room air. No evidence for pneumonia, and recommend supportive care for acute covid infection. Stable for discharge. Please see medication reconciliation for a list of current medication. Thank you for allowing us to participate in the care of this patient. The impression and plan of care has been dictated by Nora Ward, Nurse Practitioner as directed. Dr. Diandra MD I have performed a history and physical examination and medical decision making of this patient, discussed the same with the dictator, and agree with the dictators assessment and plan as written, documented as a scribe. Based on total visit time, I have performed more than 50% of this visit. Patient Condition at Discharge: Stable Plan - Discharge Summary Discharge Rx Participant: No New Discharge Prescriptions: New Pantoprazole [Protonix] 40 mg PO DAILY #14 tab Continue Multivitamins, Thera [Multivitamin (formulary)] 1 tab PO HS Simvastatin [Zocor] 20 mg PO Q48H lisinopriL [Zestril] 5 mg PO HS Aspirin EC [Ecotrin Low Dose] 81 mg PO Q3D metFORMIN HCL ER [Glucophage XR] 500 mg PO HS Metoprolol Succinate (ER) [Toprol XL] 25 mg PO HS Levothyroxine Sodium [Synthroid] 100 mcg PO DAILY Discharge Medication List Aspirin EC [Ecotrin Low Dose] 81 mg PO Q3D 05/08/22 [History] Levothyroxine Sodium [Synthroid] 100 mcg PO DAILY 05/08/22 [History] Metoprolol Succinate (ER) [Toprol XL] 25 mg PO HS 05/08/22 [History] Multivitamins, Thera [Multivitamin (formulary)] 1 tab PO HS 05/08/22 [History] Simvastatin [Zocor] 20 mg PO Q48H 05/08/22 [History] lisinopriL [Zestril] 5 mg PO HS 05/08/22 [History] metFORMIN HCL ER [Glucophage XR] 500 mg PO HS 05/08/22 [History] Pantoprazole [Protonix] 40 mg PO DAILY #14 tab 05/09/22 [Rx] Follow up Appointment(s)/Referral(s): Marina Monson MD [Primary Care Provider] - 1-2 days Kevin Ordonez MD [STAFF PHYSICIAN] - 1 Week (Scheduled for 05/21/2022 at 2pm) Ambulatory/Diagnostic Orders: Complete Blood Count w/diff [LAB.AMB] Time Frame: 3 Days, Location: None Selected Patient Instructions/Handouts: Gastrointestinal Bleeding (DC) Activity/Diet/Wound Care/Special Instructions: Continue on oral protonix 40 mg for 2 weeks Supportive care for covid infection including tylenol for fever. Can take over the counter zinc, vitamin C and Vitamin D3 supplementation. Return to or notify provider if continued rectal bleeding. Follow up your PCP in 1 to 2 days Follow up with general surgery in 1 weeks Repeat labs in 2 to 3 days to monitor hemoglobin Discharge Disposition: HOME SELF-CARE
[2022-05-09] MEDS ORDERED: PANTOPRAZOLE 40 MG/10 ML VIAL IVP SCH (21:00)
== END 2022-05-09 15:10 | disposition home or self-care (01) ==
LOC: EC 14:22 → 6NMEDSUR 18:45
PROVIDERS: ADMIT Hospitalist; ATTEND Hospitalist
DX: U07.1 COVID-19 (principal); R19.7 Diarrhea, unspecified; K29.51 Unspecified chronic gastritis with bleeding; K31.9 Disease of stomach and duodenum, unspecified; K44.9 Diaphragmatic hernia without obstruction or gangrene; K57.90 Diverticulosis of intestine, part unspecified, without perforation or abscess without bleeding; K20.90 Esophagitis, unspecified without bleeding; K62.5 Hemorrhage of anus and rectum; I10 Essential (primary) hypertension; E78.5 Hyperlipidemia, unspecified; I71.9 Aortic aneurysm of unspecified site, without rupture; E11.9 Type 2 diabetes mellitus without complications; E07.9 Disorder of thyroid, unspecified; Z90.710 Acquired absence of both cervix and uterus; Z98.890 Other specified postprocedural states; Z79.890 Hormone replacement therapy; Z79.82 Long term (current) use of aspirin; Z79.84 Long term (current) use of oral hypoglycemic drugs; Z79.899 Other long term (current) drug therapy
CPT/HCPCS: 99285; 36415; 88305; 80053; 80048; 83735; 85025 ×2; 85027; 85730; 82272; 87635; 45378; 43239; G0378 ×2; J2704; J2001; 96374; 96375

== ENCOUNTER → 2022-05-17 | Outpatient (CLI) | payer MEDICARE ==
[2022-05-17 15:19] LABS: Basophils # (A) 0.03 X 10*3/uL (0.00-0.10); Basophils % (A) 0.4 %; Eosinophils # (A) 0.09 X 10*3/uL (0.04-0.35); Eosinophils % (A) 1.2 %; HCT 40.2 % (37.2-46.3); HGB 12.7 g/dL (12.0-15.0); Immature Grans, Automated 0.7 %; Lymphocytes # (A) 1.61 X 10*3/uL (0.90-5.00); Lymphocytes % (A) 22.1 %; MCH 28.6 pg (27.0-32.0); MCHC 31.6 g/dL (32.0-37.0); MCV 90.5 fL (80.0-97.0); Mean Platelet Volume 11.1 fL (9.5-12.2); Monocytes # (A) 0.66 X 10*3/uL (0.20-1.00); Monocytes % (A) 9.1 %; NRBC Per 100 WBC 0 /100 WBCS (0.0-0.0); Neutrophils # (A) 4.83 X 10*3/uL (1.80-7.70); Neutrophils % (A) 66.5 %; Platelet Count 301 X 10*3/uL (140-440); RBC 4.44 X 10*6/uL (4.10-5.20); RDW 13.5 % (11.5-14.5); WBC 7.27 X 10*3/uL (4.50-10.00)
== END | disposition home or self-care (01) ==
LOC: LABWHC1 10:31
PROVIDERS: ATTEND Family Medicine
DX: K29.71 Gastritis, unspecified, with bleeding (principal)
CPT/HCPCS: 36415; 85025

== ENCOUNTER → 2022-09-10 | Outpatient (CLI) | payer MEDICARE ==
[2022-09-10 16:34] LABS: Basophils # (A) 0.04 X 10*3/uL (0.00-0.10); Basophils % (A) 0.7 %; Eosinophils # (A) 0.12 X 10*3/uL (0.04-0.35); Eosinophils % (A) 2.1 %; HCT 40.7 % (37.2-46.3); HGB 12.9 g/dL (12.0-15.0); Immature Grans, Automated 0.2 %; Lymphocytes # (A) 1.76 X 10*3/uL (0.90-5.00); Lymphocytes % (A) 31.5 %; MCH 29.5 pg (27.0-32.0); MCHC 31.7 g/dL (32.0-37.0); MCV 92.9 fL (80.0-97.0); Mean Platelet Volume 11.9 fL (9.5-12.2); Monocytes % (A) 10.7 %; NRBC Per 100 WBC 0 /100 WBCS (0.0-0.0); Neutrophils # (A) 3.06 X 10*3/uL (1.80-7.70); Neutrophils % (A) 54.8 %; Platelet Count 224 X 10*3/uL (140-440); RBC 4.38 X 10*6/uL (4.10-5.20); RDW 12.5 % (11.5-14.5); WBC 5.59 X 10*3/uL (4.50-10.00)
[2022-09-10 16:39] LABS: ALT 19 U/L (8-44); AST 18 U/L (13-35); African American GFR (CKD) 104.8 (60.0-200.0); Albumin 4.3 g/dL (3.8-4.9); Albumin/Globulin Ratio 2.25 (1.60-3.17); Alkaline Phosphatase 75 U/L (41-126); BUN/Creat Ratio 28.64 Ratio (12.00-20.00); Blood Urea Nitrogen 19.1 mg/dL (9.0-27.0); Calcium 9.2 mg/dL (8.7-10.3); Carbon Dioxide 24.3 mmol/L (20.0-27.5); Chloride 109 mmol/L (96-109); Chol/HDL Ratio 3.56 Ratio; Globulin 1.9 g/dL (1.6-3.3); Glucose 100 mg/dL (70-110); LDL Cholesterol,Calculated 120.1 mg/dL (0.0-131.0); Non-African American GFR(CKD) 90.5 (60.0-200.0); Potassium 4.3 mmol/L (3.5-5.5); Sodium 142 mmol/L (135-145); Total Protein 6.2 g/dL (6.2-8.2)
[2022-09-10 22:34] LABS: Microalbumin Creatinine Ratio <30 mg/g Creat (0-30); Urine Creatinine 72.4 mg/dL (28.0-217.0)
== END | disposition home or self-care (01) ==
LOC: LABWHC1 08:17
PROVIDERS: ATTEND Family Medicine
DX: E03.9 Hypothyroidism, unspecified (principal); E11.65 Type 2 diabetes mellitus with hyperglycemia; E78.00 Pure hypercholesterolemia, unspecified
CPT/HCPCS: 36415; 80053; 80061; 82043; 82570; 83036; 84443; 85025

== ENCOUNTER → 2022-09-30 | Outpatient (CLI) | payer MEDICARE ==
--- NOTE | 2022-10-01 08:13 | MM ---
Reason for Exam: Screening (asymptomatic). Last mammogram was performed 1 year(s) and 4 month(s) ago. Patient History: Menarche at age 9. First Full-Term at age 19. Hysterectomy at age 45. Postmenopausal. Patient used Hormonal Contraceptives for 10 years. 1994, Benign Excisional Biopsy on the left side. Risk Values: Denise 5 year model risk: 2.0%. NCI Lifetime model risk: 6.4%. Prior Study Comparison: 03/01/2015 Bilateral Screening Mammogram, [facility]. 03/04/2016 Bilateral Screening Mammogram, [facility]. 03/06/2017 Bilateral Screening Mammogram, [facility]. 03/11/2018 Bilateral Screening Mammogram, [facility]. 03/12/2019 Bilateral Screening Mammogram, [facility]. 05/08/2020 Bilateral Screening Mammogram, [facility]. 06/07/2021 Bilateral Screening Mammogram, [facility]. Tissue Density: There are scattered fibroglandular densities. Findings: Analyzed By CAD. There is no suspicious group of microcalcifications or new suspicious mass in either breast. Overall Assessment: Negative, BI-RAD 1 Management: Screening Mammogram of both breasts in 1 year. . Patient should continue monthly self-breast exams. A clinical breast exam by your physician is recommended on an annual basis. This exam should not preclude additional follow-up of suspicious palpable abnormalities. Note on Denise scores and lifetime risk: 1. A Denise score greater than 3% is considered moderate risk. If this is the case, consider specialist referral to assess eligibility for a risk reducing agent. 2. If overall lifetime risk for the development of breast cancer is 20% or higher, the patient may qualify for future screening with alternating mammogram and breast MRI. Electronically signed and approved by: Grayson Delgado M.D. Radiologis
== END | disposition home or self-care (01) ==
LOC: RADMAMWWP 16:13
PROVIDERS: ATTEND Family Medicine
DX: Z12.31 Encounter for screening mammogram for malignant neoplasm of breast (principal); Z78.0 Asymptomatic menopausal state
CPT/HCPCS: 77063; 77067

== ENCOUNTER → 2023-03-17 | Outpatient (CLI) | payer MEDICARE ==
[2023-03-17 16:04] LABS: ALT 18 U/L (8-44); AST 17 U/L (13-35); Albumin 4.1 g/dL (3.8-4.9); Albumin/Globulin Ratio 2.16 Ratio (1.60-3.17); Alkaline Phosphatase 72 U/L (41-126); BUN/Creat Ratio 25.57 Ratio (12.00-20.00); Blood Urea Nitrogen 17.9 mg/dL (9.0-27.0); Calcium 9.4 mg/dL (8.7-10.3); Carbon Dioxide 23.5 mmol/L (21.6-31.8); Chloride 109 mmol/L (96-109); Chol/HDL Ratio 2.46 Ratio; Globulin 1.9 g/dL (1.6-3.3); Glucose 104 mg/dL (70-110); LDL Cholesterol,Calculated 59.9 mg/dL (0.0-131.0); Potassium 4.2 mmol/L (3.5-5.5); Sodium 142 mmol/L (135-145); Total Bilirubin 0.3 mg/dL (0.3-1.2); VLDL Calculation 17.34 mg/dL (5.00-40.00)
[2023-03-17 18:35] LABS: Microalbumin Creatinine Ratio <15 mg/g Cr (0-30); Urine Creatinine 79.2 mg/dL (28.0-217.0)
== END | disposition home or self-care (01) ==
LOC: LABWHC1 08:14
PROVIDERS: ATTEND Internal Medicine Endocrinology, Diabetes & Metabolism
DX: E11.9 Type 2 diabetes mellitus without complications (principal)
CPT/HCPCS: 36415; 80053; 80061; 82043; 82570; 83036; 84443

== ENCOUNTER → 2023-07-30 | Outpatient (CLI) | payer MEDICARE ==
[2023-07-30 11:40] LABS: ALT 23 U/L (8-44); AST 18 U/L (13-35); Albumin 4.3 g/dL (3.8-4.9); Albumin/Globulin Ratio 2.05 Ratio (1.60-3.17); Alkaline Phosphatase 80 U/L (41-126); Calcium 9.3 mg/dL (8.7-10.3); Chloride 111 mmol/L (96-109); Chol/HDL Ratio 2.79 Ratio; Creatine Kinase 79 U/L (26-186); Globulin 2.1 g/dL (1.6-3.3); Glucose 110 mg/dL (70-110); Potassium 4.4 mmol/L (3.5-5.5); Sodium 145 mmol/L (135-145); Total Bilirubin 0.4 mg/dL (0.3-1.2); Total Protein 6.4 g/dL (6.2-8.2)
== END | disposition home or self-care (01) ==
LOC: LABWHC1 08:11
PROVIDERS: ATTEND Internal Medicine Interventional Cardiology
DX: E11.9 Type 2 diabetes mellitus without complications (principal); E03.8 Other specified hypothyroidism; E78.5 Hyperlipidemia, unspecified
CPT/HCPCS: 36415; 80053; 80061; 82550; 83036; 84443

== ENCOUNTER → 2023-10-23 | Outpatient (CLI) | payer MEDICARE ==
--- NOTE | 2023-10-23 12:57 | BD ---
EXAMINATION TYPE: Axial Bone Density DATE OF EXAM: 10/23/2023 CLINICAL HISTORY: 67 years old Female. ICD-10 CODE: M85.80 OTHER SPECIFIED DISORDERS Height: 62in Weight: 161lb FRAX RISK QUESTIONS: Family History (Parent hip fracture): yes Secondary Osteoporosis: RISK FACTORS HISTORY OF: MEDICATIONS: Thyroid Medications: Which medication: Synthroid How Long: about 20 years EXAM MEASUREMENTS: Bone mineral densitometry was performed using the [employer] Online System. Bone mineral density as measured about the Lumbar spine is: ----- L1-L4(G/cm2): 1.037 T Score Values are as follows: ----- L1: -1.7 ----- L2: -1.5 ----- L3: -0.5 ----- L4: -1.4 ----- L1-L4: -1.2 Z Score Values are as follows: ----- L1: -0.3 ----- L2: -0.1 ----- L3: 0.9 ----- L4: 0.0 ----- L1-L4: 0.2 Bone mineral density has: Increased 1.9% since study of: 05-02-21 Bone mineral density about the R hip (g/cm2): 0.923 Bone mineral density about the L hip (g/cm2): 0.889 T Score values are as follows: -----R Neck: -1.4 -----L Neck: -1.5 -----R Total: -0.7 -----L Total: -0.9 Z Score values are as follows: -----R Neck: 0.1 -----L Neck: 0.0 -----R Total: 0.6 -----L Total: 0.3 Bone mineral density has: Decreased -0.2% since study of: 05-02-21 FRAX%s: The graph provided illustrates a 15.3% chance for a major osteoporotic fx and a 2.8% chance f or the hips probability for fx in 10 years time. IMPRESSION: Osteopenia (T Score between -2.5 and -1). There is slightly increased risk of fracture and the patient may be considered for treatment. Re-Screen 2-5 years. NOTE: T-SCORE=SD OF THE YOUNG ADULT MEAN.
--- NOTE | 2023-10-26 17:44 | MM ---
Reason for Exam: Screening (asymptomatic). Last screening mammogram was performed 12 month(s) ago. Patient History: Menarche at age 9. First Full-Term at age 19. Hysterectomy at age 45. Postmenopausal. Patient used Hormonal Contraceptives for 10 years. 1994, Benign Excisional Biopsy on the left side. Risk Values: Denise 5 year model risk: 2.0%. NCI Lifetime model risk: 6.1%. Prior Study Comparison: 05/08/2020 Bilateral Screening Mammogram, [facility]. 06/07/2021 Bilateral Screening Mammogram, [facility]. 09/30/2022 Bilateral MG 3D screening mammo w/cad, [facility]. Tissue Density: There are scattered areas of fibroglandular density. Findings: Analyzed By CAD. Chronic nodularity and unchanged areas of asymmetric density on both sides. Benign bilateral oil cyst calcifications. Benign secretory calcifications on the left. There is no suspicious group of microcalcifications or new suspicious mass in either breast. Overall Assessment: Benign, BI-RAD 2 Management: Screening Mammogram of both breasts in 1 year. . Patient should continue monthly self-breast exams. A clinical breast exam by your physician is recommended on an annual basis. This exam should not preclude additional follow-up of suspicious palpable abnormalities. Note on Denise scores and lifetime risk: 1. A Denise score greater than 3% is considered moderate risk. If this is the case, consider specialist referral to assess eligibility for a risk reducing agent. 2. If overall lifetime risk for the development of breast cancer is 20% or higher, the patient may qualify for future screening with alternating mammogram and breast MRI. Electronically signed and approved by: Darrell Persaud M.D. Radiologist
== END | disposition home or self-care (01) ==
LOC: RADMAMWWP 10:09
PROVIDERS: ATTEND Family Medicine
DX: Z12.31 Encounter for screening mammogram for malignant neoplasm of breast (principal); M85.89 Other specified disorders of bone density and structure, multiple sites; Z78.0 Asymptomatic menopausal state
CPT/HCPCS: 77063; 77067; 77080

== ENCOUNTER → 2023-12-01 | Outpatient (CLI) | payer MEDICARE ==
--- NOTE | 2024-01-26 15:14 | CT ---
EXAMINATION TYPE: CT angio chest DATE OF EXAM: 12/12/2023 COMPARISON: No comparison available on downtime PACS. HISTORY: Thoracic aortic aneurysm CT DLP: 450.6 mGycm Automated exposure control for dose reduction was used. Contrast: 100 mL [id number] Technique: Axial images 5 mm thick sections. Pre and postcontrast imaging performed Reconstructed images in the coronal plane. Three-D reconstructed MIPS images in the coronal and sagittal plane are presented. FINDINGS: Ascending thoracic aorta at the main pulmonary arteries 3.8 cm. Main pulmonary artery the bifurcation is 2.6 cm. No aneurysmal dilatation of the ascending thoracic aorta, aortic arch, or descending thoracic aorta is evident. There is a 0.3 cm peripheral nodule along the major fissure right mid to lower lung field, series 7 image 85. No suspicious consolidations evident. No enlarged mediastinal or hilar adenopathy. Limited CT sections are obtained through the upper abdomen are unremarkable. IMPRESSION: 1. NO ANEURYSMAL DILATATION THORACIC AORTA. 2. 0.3 CM PERIPHERAL MAJOR FISSURE NODULE RIGHT MID TO LOWER LUNG FIELD. FOLLOW- UP EXAM IN 6 MONTHS - 1 YEAR IS RECOMMENDED. MTDD
== END | disposition home or self-care (01) ==
LOC: RADCTMAIN 12:30
PROVIDERS: ATTEND Thoracic Surgery (Cardiothoracic Vascular Surgery)
DX: I71.20 Thoracic aortic aneurysm, without rupture, unspecified (principal); R91.1 Solitary pulmonary nodule
CPT/HCPCS: 82565; 84520; 71275; 36415; Q9967

== ENCOUNTER → 2024-03-09 | Outpatient (CLI) | payer MEDICARE ==
[2024-03-09 16:24] LABS: ALT 25 U/L (8-44); AST 24 U/L (13-35); Albumin 4.3 g/dL (3.8-4.9); Albumin/Globulin Ratio 2.15 Ratio (1.60-3.17); Alkaline Phosphatase 74 U/L (41-126); Blood Urea Nitrogen 14.4 mg/dL (9.0-27.0); Calcium 9.4 mg/dL (8.7-10.3); Carbon Dioxide 24.9 mmol/L (21.6-31.8); Chloride 107 mmol/L (96-109); Chol/HDL Ratio 2.57 Ratio; Glucose 105 mg/dL (70-110); LDL Cholesterol,Calculated 58.9 mg/dL (0.0-131.0); Potassium 4.2 mmol/L (3.5-5.5); Sodium 142 mmol/L (135-145); Total Bilirubin 0.6 mg/dL (0.3-1.2); Total Protein 6.3 g/dL (6.2-8.2)
[2024-03-09 16:54] LABS: HCT 41.7 % (37.2-46.3); HGB 13.8 g/dL (12.0-15.0); MCH 30.6 pg (27.0-32.0); MCHC 33.1 g/dL (32.0-37.0); MCV 92.5 FL (80.0-97.0); Mean Platelet Volume 11.9 FL (9.5-12.2); NRBC Per 100 WBC 0 X 10*3/uL (0.00-0.01); Platelet Count 229 X 10*3/uL (140-440); RBC 4.51 X 10*6/uL (4.10-5.20); RDW 12.9 % (11.5-14.5); WBC 5.66 X 10*3/uL (4.50-10.00)
== END | disposition home or self-care (01) ==
LOC: LABWHC1 08:41
PROVIDERS: ATTEND Internal Medicine Interventional Cardiology
DX: I10 Essential (primary) hypertension (principal); E78.2 Mixed hyperlipidemia; E11.9 Type 2 diabetes mellitus without complications
CPT/HCPCS: 36415; 80053; 80061; 85027